=== PATIENT | female | born 1955 | race Two or more races ===

== ENCOUNTER 2021-01-10 20:00 | Inpatient (IN) | payer OTHER ==
[~2021-01-10] VITALS: Ht 152.4 cm; Wt 84.9 kg
[2021-01-10] MEDS ORDERED: SODIUM CHLORIDE 0.9% 1,000 ML IV ONE (20:30)
[2021-01-10] MEDS ORDERED: KETOROLAC TROMETH 30 MG/ML 1ML VIAL IV ONE (20:30)
[2021-01-10] MEDS ORDERED: cefTRIAXone 1GM/50ML D5W 50 ML IV ONE (20:30)
[2021-01-10 21:00] LABS: Basophils # (auto) 0.1 10 ^3/uL (0-0.2); Basophils % (auto) 0.6 % (0.0-2.0); Eosinophils # (auto) 0.1 10 ^3/uL (0-0.8); Eosinophils % (auto) 0.4 % (0.0-7.0); Hematocrit 40.9 % (36.0-46.0); Hemoglobin 13.7 g/dL (12.2-16.2); Lymphocytes # (auto) 2.6 10 ^3/uL (0.4-5.4); Lymphocytes % (auto) 12.7 % (10.0-50.0); Mean Corpuscular Hemoglobin 28.5 pg (28.0-32.0); Mean Corpuscular Hgb Conc. 33.5 g/dL (32.0-36.0); Mean Corpuscular Volume 85.1 fL (80.0-100.0); Monocytes # (auto) 1.3 10 ^3/uL (0-1.3); Monocytes % (auto) 6.3 % (0.0-12.0); Neutrophils # (auto) 16.1 10 ^3/uL (1.6-8.6); Nucleated Red Blood Cells % 0.1 %; Red Cell Distribution Width 13.4 % (11.8-14.3); White Blood Cell 20.1 10^3/uL (4.4-10.8)
[2021-01-10 21:19] LABS: Albumin 3.4 g/dL (3.4-5.0); Calcium 9.6 mg/dL (8.5-10.1); Potassium 3.7 mmol/L (3.5-5.1)
[2021-01-10 21:20] LABS: Lactic Acid w/Reflex 2.8 mmol/L (0.4-2.0)
[2021-01-10 21:23] LABS: BUN/Creatinine Ratio 13.3; Bilirubin, Total 0.4 mg/dL (0.2-1.0); Total Protein 7.2 g/dL (6.4-8.2)
[2021-01-10 22:04] LABS: Urine Bacteria NONE SEEN /hpf (None Seen); Urine Blood 2+ /uL (Negative); Urine WBC 1127 /hpf (0 - 5); Urine WBC Clumps PRESENT /hpf (None Seen)
[2021-01-10] MEDS ORDERED: ONDANSETRON HCL 4 MG/2 ML VIAL IV PRN (23:00)
[2021-01-10] MEDS ORDERED: TEMAZEPAM 15 MG CAP PO PRN (23:00)
[2021-01-10] MEDS ORDERED: DEXTROSE (50%) 50ML SYRG IV PRN (23:00)
[2021-01-10] MEDS ORDERED: cloNIDine HCL 0.1 MG TAB PO PRN (23:00)
[2021-01-10 23:59] VITALS: BP 126/62
[2021-01-11 01:35] VITALS: BP 126/62
[2021-01-11] MEDS: SODIUM CHLORIDE 0.9% 1,000 ML IV SCH ×2 (01:50→15:23)
[2021-01-11 05:00] VITALS: BP 135/68
[2021-01-11 05:46] LABS: Basophils # (auto) 0.1 10 ^3/uL (0-0.2); Basophils % (auto) 0.4 % (0.0-2.0); Eosinophils # (auto) 0.1 10 ^3/uL (0-0.8); Eosinophils % (auto) 0.4 % (0.0-7.0); Hematocrit 36.2 % (36.0-46.0); Hemoglobin 12.3 g/dL (12.2-16.2); Lymphocytes # (auto) 3.7 10 ^3/uL (0.4-5.4); Lymphocytes % (auto) 23.7 % (10.0-50.0); Mean Corpuscular Hemoglobin 29.2 pg (28.0-32.0); Mean Corpuscular Hgb Conc. 33.9 g/dL (32.0-36.0); Mean Corpuscular Volume 86.1 fL (80.0-100.0); Monocytes # (auto) 1.2 10 ^3/uL (0-1.3); Monocytes % (auto) 7.9 % (0.0-12.0); Neutrophils # (auto) 10.5 10 ^3/uL (1.6-8.6); Neutrophils % (auto) 67.6 % (37.0-80.0); Red Cell Distribution Width 13.2 % (11.8-14.3); White Blood Cell 15.5 10^3/uL (4.4-10.8)
[2021-01-11 05:50] LABS: BUN/Creatinine Ratio 19.6; Calcium 8.5 mg/dL (8.5-10.1); Potassium 3.6 mmol/L (3.5-5.1)
[2021-01-11] MEDS: InsuLIN REG 1unit/0.01ml Soln (100units/ml) SC SCH ×4 (06:37→22:11)
[2021-01-11] MEDS: ACCU-CHEK COMFORT CURVE STRIP VI SCH ×4 (06:37→22:10)
[2021-01-11] MEDS ORDERED: INFLUENZA QUAD 2021-2022 0.5 ML SYRG IM ONE (07:00)
[2021-01-11] MEDS ORDERED: LISI20TA28 PO (07:05)
[2021-01-11] MEDS ORDERED: METF-372 PO (07:05)
[2021-01-11] MEDS ORDERED: HYDR12.56 PO (07:06)
[2021-01-11] MEDS ORDERED: LEVEMIR SC (07:06)
[2021-01-11] MEDS ORDERED: LOSA-39 PO (07:06)
[2021-01-11 09:08] VITALS: BP 132/73
[2021-01-11] MEDS: cefTRIAXone 1GM/50ML D5W 50 ML IV SCH (09:15)
[2021-01-11] MEDS: PANTOPRAZOLE 40 MG TAB PO SCH (09:16)
[2021-01-11] MEDS: amLODIPine BESYLATE 5 MG TAB PO SCH (09:16)
[2021-01-11] MEDS: ACETAMINOPHEN 325 MG TAB PO PRN (09:27)
[2021-01-11 12:56] VITALS: BP 150/68
[2021-01-11 17:49] VITALS: BP 132/56
[2021-01-11] MEDS: HYDROcodone-ACET 5/325MG TAB PO PRN (22:10)
[2021-01-11 22:28] VITALS: BP 138/67
[2021-01-12 05:00] VITALS: BP 132/70
[2021-01-12] MEDS: SODIUM CHLORIDE 0.9% 1,000 ML IV SCH ×3 (06:15→22:30)
[2021-01-12] MEDS: ACCU-CHEK COMFORT CURVE STRIP VI SCH ×4 (06:27→22:18)
[2021-01-12] MEDS: InsuLIN REG 1unit/0.01ml Soln (100units/ml) SC SCH ×4 (06:27→22:18)
[2021-01-12 06:46] LABS: INR 1.06 (0.9-1.15); Partial Thromboplastin Time 28.3 sec (23.6-33.0)
[2021-01-12 06:54] LABS: Potassium 3.8 mmol/L (3.5-5.1)
[2021-01-12 07:00] LABS: Basophils # (auto) 0.1 10 ^3/uL (0-0.2); Basophils % (auto) 0.7 % (0.0-2.0); Eosinophils # (auto) 0.2 10 ^3/uL (0-0.8); Eosinophils % (auto) 2.4 % (0.0-7.0); Hematocrit 36.7 % (36.0-46.0); Hemoglobin 12.4 g/dL (12.2-16.2); Lymphocytes # (auto) 3.8 10 ^3/uL (0.4-5.4); Lymphocytes % (auto) 41.8 % (10.0-50.0); Mean Corpuscular Hemoglobin 29.2 pg (28.0-32.0); Mean Corpuscular Hgb Conc. 33.9 g/dL (32.0-36.0); Mean Corpuscular Volume 86.4 fL (80.0-100.0); Monocytes # (auto) 0.8 10 ^3/uL (0-1.3); Monocytes % (auto) 8.7 % (0.0-12.0); Neutrophils # (auto) 4.2 10 ^3/uL (1.6-8.6); Neutrophils % (auto) 46.4 % (37.0-80.0); Red Blood Cells 4.25 10^6/uL (4.0-5.20); Red Cell Distribution Width 13.6 % (11.8-14.3)
[2021-01-12 07:13] LABS: BUN/Creatinine Ratio 21.7
[2021-01-12] MEDS: cefTRIAXone 1GM/50ML D5W 50 ML IV SCH (08:55)
[2021-01-12] MEDS: PANTOPRAZOLE 40 MG TAB PO SCH (08:56)
[2021-01-12] MEDS: ACETAMINOPHEN 325 MG TAB PO PRN (08:56)
[2021-01-12] MEDS: amLODIPine BESYLATE 5 MG TAB PO SCH (08:56)
[2021-01-12 09:00] VITALS: BP 157/68
[2021-01-12 13:00] VITALS: BP 155/70
[2021-01-12 16:55] VITALS: BP 149/86
[2021-01-12 22:35] VITALS: BP 125/61
[2021-01-13] MEDS: SODIUM CHLORIDE 0.9% 1,000 ML IV SCH ×2 (04:20→17:40)
[2021-01-13] MEDS: InsuLIN REG 1unit/0.01ml Soln (100units/ml) SC SCH ×4 (06:11→22:12)
[2021-01-13] MEDS: ACCU-CHEK COMFORT CURVE STRIP VI SCH ×4 (06:11→22:11)
[2021-01-13 06:16] LABS: Basophils # (auto) 0.1 10 ^3/uL (0-0.2); Basophils % (auto) 0.8 % (0.0-2.0); Eosinophils # (auto) 0.1 10 ^3/uL (0-0.8); Eosinophils % (auto) 1.6 % (0.0-7.0); Hematocrit 38.4 % (36.0-46.0); Hemoglobin 12.8 g/dL (12.2-16.2); Lymphocytes # (auto) 3.1 10 ^3/uL (0.4-5.4); Lymphocytes % (auto) 36.4 % (10.0-50.0); Mean Corpuscular Hemoglobin 28.2 pg (28.0-32.0); Mean Corpuscular Hgb Conc. 33.3 g/dL (32.0-36.0); Mean Corpuscular Volume 84.7 fL (80.0-100.0); Monocytes # (auto) 0.7 10 ^3/uL (0-1.3); Neutrophils # (auto) 4.6 10 ^3/uL (1.6-8.6); Neutrophils % (auto) 53.2 % (37.0-80.0); Nucleated Red Blood Cells % 0.1 %; Red Blood Cells 4.53 10^6/uL (4.0-5.20); Red Cell Distribution Width 13.2 % (11.8-14.3); White Blood Cell 8.6 10^3/uL (4.4-10.8)
[2021-01-13 06:31] LABS: BUN/Creatinine Ratio 22.4; Calcium 8.5 mg/dL (8.5-10.1); Potassium 3.6 mmol/L (3.5-5.1)
[2021-01-13 09:20] VITALS: BP 138/64
[2021-01-13] MEDS: cefTRIAXone 1GM/50ML D5W 50 ML IV SCH (09:29)
[2021-01-13] MEDS: amLODIPine BESYLATE 5 MG TAB PO SCH (09:29)
[2021-01-13] MEDS: PANTOPRAZOLE 40 MG TAB PO SCH (09:32)
[2021-01-13] MEDS ORDERED: MIDAZOLAM HCL 2MG/2ML 2ml VIAL (1mg/ml) ONE (11:25)
[2021-01-13] MEDS ORDERED: ROCURONIUM 10MG/ML 10ML VIAL IV ONE (11:25)
[2021-01-13] MEDS ORDERED: fentaNYL CITRATE 100 MCG/2 ML VL ONE ×2 (11:25→12:21)
[2021-01-13] MEDS ORDERED: BUPIVACAINE W/ EPINEPH 0.25% INJ 50ML MDV ONE (12:07)
[2021-01-13] MEDS ORDERED: NEOSTIGMINE 1 MG/ML INJ (10mg/10ML VIAL) IV ONE (12:10)
[2021-01-13] MEDS ORDERED: ONDANSETRON HCL 4 MG/2 ML VIAL ONE (12:36)
[2021-01-13] MEDS ORDERED: PROPOFOL 10 MG/ML 20 ML IV ONE (12:36)
[2021-01-13] MEDS ORDERED: LIDOCAINE 2% (LOCAL ANESTH.) PF 5ml SDV ONE (12:36)
[2021-01-13] MEDS ORDERED: GLYCOPYRROLATE 0.2 MG/ML 1ML VIAL ONE (12:50)
[2021-01-13] MEDS ORDERED: ONDANSETRON HCL 4 MG/2 ML VIAL IV PRN (13:15)
[2021-01-13] MEDS: HYDROmorphone HCL 2 MG/ML VL IV PRN ×2 (13:22→13:35)
[2021-01-13 14:22] VITALS: BP 153/67
[2021-01-13 16:09] VITALS: BP 125/63
[2021-01-13 17:00] VITALS: BP 132/64
[2021-01-13] MEDS: HYDROcodone-ACET 5/325MG TAB PO PRN (20:31)
[2021-01-13 22:00] VITALS: BP 131/74
[2021-01-14] MEDS: SODIUM CHLORIDE 0.9% 1,000 ML IV SCH (04:00)
[2021-01-14 05:00] VITALS: BP 131/85
[2021-01-14] MEDS: ACCU-CHEK COMFORT CURVE STRIP VI SCH ×2 (06:09→11:43)
[2021-01-14] MEDS: InsuLIN REG 1unit/0.01ml Soln (100units/ml) SC SCH ×2 (06:10→11:47)
[2021-01-14 06:18] LABS: Basophils # (auto) 0.1 10 ^3/uL (0-0.2); Basophils % (auto) 0.6 % (0.0-2.0); Eosinophils # (auto) 0 10 ^3/uL (0-0.8); Hematocrit 35.7 % (36.0-46.0); Hemoglobin 11.9 g/dL (12.2-16.2); Lymphocytes # (auto) 2.2 10 ^3/uL (0.4-5.4); Lymphocytes % (auto) 18.5 % (10.0-50.0); Mean Corpuscular Hemoglobin 28.4 pg (28.0-32.0); Mean Corpuscular Hgb Conc. 33.4 g/dL (32.0-36.0); Mean Corpuscular Volume 85.1 fL (80.0-100.0); Monocytes # (auto) 0.9 10 ^3/uL (0-1.3); Neutrophils # (auto) 8.6 10 ^3/uL (1.6-8.6); Neutrophils % (auto) 72.9 % (37.0-80.0); Red Blood Cells 4.19 10^6/uL (4.0-5.20); Red Cell Distribution Width 13.5 % (11.8-14.3); White Blood Cell 11.8 10^3/uL (4.4-10.8)
[2021-01-14 06:30] LABS: Albumin 2.8 g/dL (3.4-5.0); BUN/Creatinine Ratio 19.6; Calcium 8.4 mg/dL (8.5-10.1); Potassium 3.7 mmol/L (3.5-5.1)
[2021-01-14 06:33] LABS: Bilirubin, Total 0.5 mg/dL (0.2-1.0); Phosphorus 2.9 mg/dL (2.5-4.90); Total Protein 6.4 g/dL (6.4-8.2)
[2021-01-14 08:34] LABS: INR 1.04 (0.9-1.15)
[2021-01-14 09:00] VITALS: BP 140/60
[2021-01-14] MEDS: amLODIPine BESYLATE 5 MG TAB PO SCH (09:30)
[2021-01-14] MEDS: cefTRIAXone 1GM/50ML D5W 50 ML IV SCH (09:30)
[2021-01-14] MEDS: HYDROcodone-ACET 5/325MG TAB PO PRN (09:31)
[2021-01-14] MEDS: PANTOPRAZOLE 40 MG TAB PO SCH (09:31)
[2021-01-14 15:39] VITALS: BP 140/70
[2021-01-14] MEDS ORDERED: ATOR20TA50 PO (18:45)
[2021-01-14] MEDS ORDERED: METF-372 PO (18:45)
[2021-01-14] MEDS ORDERED: BENA10TA15 PO (18:45)
[2021-01-14] MEDS ORDERED: ASPI81CH59 PO (18:45)
[2021-01-14] MEDS ORDERED: AML5T PO (18:45)
[2021-01-14] MEDS ORDERED: CIPR500T4 PO (18:45)
[2021-01-14] MEDS ORDERED: INSU1INJ5 SC (18:45)
== END 2021-01-14 16:03 | disposition home or self-care (01) | DRG 854 ==
LOC: ER 20:03 → OVERFLOW 22:56 → CENTRAL 23:54
PROVIDERS: ADMIT Nurse Practitioner; ATTEND Internal Medicine
PROC: 0FN44ZZ Release Gallbladder, Percutaneous Endoscopic Approach (ICD-10-PCS; 2021-01-13)
PROC: 0FT44ZZ Resection of Gallbladder, Percutaneous Endoscopic Approach (ICD-10-PCS; principal; 2021-01-13 11:22)
DX: A41.9 Sepsis, unspecified organism (principal); N10 Acute pyelonephritis; K80.10 Calculus of gallbladder with chronic cholecystitis without obstruction; E11.9 Type 2 diabetes mellitus without complications; E66.01 Morbid (severe) obesity due to excess calories; I10 Essential (primary) hypertension; Z20.822 Contact with and (suspected) exposure to COVID-19; K66.0 Peritoneal adhesions (postprocedural) (postinfection); Z82.49 Family history of ischemic heart disease and other diseases of the circulatory system; Z83.3 Family history of diabetes mellitus; Z28.21 Immunization not carried out because of patient refusal; Z68.30 Body mass index [BMI] 30.0-30.9, adult
CPT/HCPCS: 36415; 74176; 76705; 80048; 80053; 81001; 82962; 83036; 83605; 83690; 83735; 84100; 85025; 85610; 85730; 86850; 86900; 86901; 87040; 87086; 87088; 87186; 87426; 96365; 96375; G0378; J0696; J1815; J1885; J2001; J2250; J2405; J2704